=== PATIENT | female | born 1950 ===

== ENCOUNTER 2016-05-29 04:29 | Emergency (ER) | payer MEDICARE ==
[2016-05-29] MEDS ORDERED: LIDOCAINE 1%/EPINEPHRINE 20ML VIAL IJ ONE ×2 (04:40→04:47)
[2016-05-29] MEDS ORDERED: DIPH,PERTUSS(ACELL),TET VAC/PF 0.5 ML DISP.SYRIN IM ONE (05:20)
--- NOTE | 2016-05-29 05:23 | ED Physician Documentation ---
General Adult - HISTORIAN Historian: patient - HPI Stated Complaint: scalp laceration Chief Complaint: General Adult Onset: minutes Timing: still present Severity: moderate Further Comments: yes (Pt is a 65 yo female visiting the [facility] from [place] who sustained extensive scalp lacerations. Pt was in her hotel room sitting on the side of her bed when she fell asleep while sitting and fell forward, hitting her head/scalp on the sharp edge of another bed. Pt did not lose consciousness or injur her neck. She has some soreness in her R shoulder. Pt also lost her daily medications, which she had left in the hotel, and which it is hotel policy not to return, since she had the meds in an unlabelled container. These were Doxepin and Effexor.) - ROS CONST: no problems EYES/ENT: none CVS/RESP: none GI/: none MS/SKIN/LYMPH: other (scalp lacerations) - PAST HX Past History: other (depression/anxiety, HTN) Surgeries/Procedures: cholecystectomy Allergies/Adverse Reactions: Allergies Allergy/AdvReac Type Severity Reaction Status Date / Time prednisone Allergy Palpitation Verified 05/29/16 04:48 s Sulfa (Sulfonamide Allergy Itchy Skin Verified 05/29/16 04:48 Antibiotics) Home Medications: Ambulatory Orders Medication Instructions Recorded Diltiazem HCl [Diltiazem 24Hr ER] 180 mg PO QDAY 05/29/16 Doxepin HCl [Sinequan] 150 mg PO QDAY 05/29/16 Lisinopril/Hydrochlorothiazide 1 each PO 05/29/16 [Zestoretic] Venlafaxine HCl [Effexor] 75 mg PO QD 05/29/16 - SOCIAL HX Smoking History: non-smoker - FAMILY HX Family History: No - VITAL SIGNS Vital Signs: Vital Signs Temp Pulse Resp BP Pulse Ox 97.9 F 86 18 152/139 96 05/29/16 04:30 05/29/16 04:30 05/29/16 04:30 05/29/16 04:30 05/29/16 04:30 - REVIEWED ASSESSMENTS Nursing Assessment Reviewed: Yes Vitals Reviewed: Yes Procedures Wound Location: head (Scalp) Wound Length: 14 cm, 7 cm, 7 cm Wound's Depth, Shape: irregular Wound Explored: no foreign body removed Irrigated w/ Saline (ccs): 30 Betadine Prep?: Yes Anesthesia: Lidocaine w/ Epi Wound Debrided: minimal Wound Repaired With: sutures, truong (27) Suture Size/Type: 3:0, proline Number of Sutures: 3 Deep Layer Suture Size/Type: 3:0, chromic Number Deep Layer Sutures: 1 Sterile Dressing Applied?: No Progress - Progress Progress: Head CT: no acute intracranial process. Multiple large scalp lacertations: 14 cm, 7 cm, 5 cm; closed with 13, 7, and 7 truong respectively. The 14 cm laceration required 3 sutures to help bring together the underlying tissue. The tails on these sutures were left long to facilitate locating them. Counting from the staple nearest the L ear, the 1st suture is under staple #3, the 2nd suture is midway between staple #4 & #5, and the 3rd suture is under staple #7.The remaining lacerations could be closed with simple truong. Lidocaine 1% with epi, 8 cc. Saline irrigation. Tdap 0.5 ml IM Rx Doxycycline 100 mg. Take one every 12 hrs for 10 days. 1st dose in ER. Refill Rx Doxepin 150 mg po qhs # 30 Refill Rx Effexor XR 75 mg po qd # 30 Follow up with your primary care provider in 2 days for wound recheck and again in 7 days for suture and staple removal. ED Results Lab/Radiology - Orders Orders: ED Orders Category Date Time Status CT BRAIN W CONTRAST Stat Exams 05/29/16 Ordered Diph,Pertuss(Acell),Tet Vac/Pf [Adacel] Med 05/29/16 05:20 Discontinued 0.5 ml IM .ONCE ONE Lidocaine 1%/Epinephrine [Xylocaine 1%-EPI 1:100,000] Med 05/29/16 04:47 Discontinued 1 ml IJ .STK-MED ONE General Adult Physical Exam - PHYSICAL EXAM GENERAL APPEARANCE: mild distress EENT: eye inspection normal, ENT inspection normal, pharynx normal NECK: normal inspection, supple RESPIRATORY: no resp distress, chest non-tender, breath sounds normal CVS: reg rate & rhythm, heart sounds normal ABDOMEN: soft, no organomegaly BACK: normal inspection, no CVA tenderness SKIN: other ( extensive scalp lacerations, see progress section) EXTREMITIES: non-tender, normal range of motion, no evidence of injury, other ( normal rotator cuff maneuvers) NEURO: oriented X3, CN's nml as tested, motor nml, sensation nml Discharge Clincal Impression: extensive scalp lacerations Right shoulder strain Qualifiers: Encounter type: initial encounter Qualified Code(s): S46.911A - Strain of unspecified muscle, fascia and tendon at shoulder and upper arm level, right arm , initial encounter Home Medications: Ambulatory Orders Diltiazem HCl [Diltiazem 24Hr ER] 180 mg PO QDAY 05/29/16 Doxepin HCl [Sinequan] 150 mg PO QDAY 05/29/16 Lisinopril/Hydrochlorothiazide [Zestoretic] 1 each PO 05/29/16 Venlafaxine HCl [Effexor] 75 mg PO QD 05/29/16 Condition: Good Disposition: 01 HOME, SELF-CARE Decision to Admit: NO Decision Time: 06:12
[2016-05-29] MEDS ORDERED: AMOXICILLIN/POT 875/125 1 EACH PO ONE ×2 (05:33→05:58)
--- NOTE | 2016-05-29 05:52 | Diagnostic Imaging Report ---
Report Submission Date: May 29, 2016 5:41:29 AM [employer]Y PLAN DEMONSTRATOR Patient ~ Study Name: [facility] ~ Date: May 29, 2016 5:25:32 AM [employer]Y PLAN DEMONSTRATOR ~ Modality Type: CT\SR Gender: F ~ Description: CT BRAIN W/O CONTRAST : 48 ~ Institution: [facility] Physician: MALLORY RAZA ~ ~ ~ ~ Computed tomography of the head without contrast History: Fall with head injury and laceration Findings: Transverse brain sections are obtained without contrast revealing a stapled left frontal scalp laceration and minimal brain atrophy. Tanner white differentiation is intact. Minimal bilateral frontal periventricular white matter hypodensity is observed. There is no intracranial hemorrhage. The skull is intact. Impression: 1. Left scalp injury without intracranial hemorrhage or skull fracture. 2. Minimal brain atrophy and chronic small vessel ischemic gliosis in bifrontal white matter. ~ Electronically signed on May 29, 2016 5:41:29 AM PARTY PLAN DEMONSTRATOR by: Alexander UNDERWOOD
[2016-05-29] MEDS ORDERED: IBUPROFEN 200 MG TABLET PO ONE (06:00)
[2016-05-29] MEDS ORDERED: DOXYCYCLINE MONOHYDRATE 100 MG CAPSULE PO ONE ×2 (06:12→06:14)
[2016-05-29 06:55] VITALS: BP 172/80
== END 2016-05-29 06:40 | disposition home or self-care (01) ==
LOC: ED 04:29
DX: S01.01XA Laceration without foreign body of scalp, initial encounter (principal); S46.911A Strain of unspecified muscle, fascia and tendon at shoulder and upper arm level, right arm, initial encounter; W06.XXXA Fall from bed, initial encounter; Y92.59 Other trade areas as the place of occurrence of the external cause; Y99.9 Unspecified external cause status
CPT/HCPCS: 12006; 70460; 90471; 90715; 99284; J7030